=== PATIENT | female | born 2000 | race Caucasian/White ===

== ENCOUNTER 2023-02-27 22:31 | Emergency (ER) | payer BC, SELFPAY ==
[2023-02-27 22:41] VITALS: BP 110/68; PULSE 78; RESP 16; TEMP 36.2; O2SAT 100; BMI 23.0
--- NOTE | 2023-02-27 22:53 | ED_ITS ---
HPI - Allergic Reaction General Date Seen: 02/27/23 Chief complaint: Allergic Reaction Stated complaint: allergic reaction Time Seen by Provider: 02/27/23 22:50 Source: patient Mode of arrival: ambulatory Limitations: no limitations History of Present Illness HPI narrative: Patient is a very nice 23-year-old female who presents here with the sting to the left lower leg. This occurred approximately 10 hours ago, is been gradually increasing in size is very itchy and red. She took 1 dose of Benadryl before she came, she denies any breathing problems shortness of breath associated with this, no previous problems, on discussing with him it seems to be more of a Tabor/hornet sting. MD complaint: allergic reaction and hives Onset (ago): hour(s) Exposure: insect bite Symptoms: rash Severity: mild Treatment prior to arrival: benadryl Previous Allergic Reaction History: none Related Data Home Medications Medication Instructions Recorded Confirmed No Known Home Medications 02/27/23 02/27/23 Allergies Allergy/AdvReac Type Severity Reaction Status Date / Time bees Allergy Intermediate Uncoded 02/27/23 22:43 Review of Systems Status of ROS Reports: 10 or more systems reviewed and unremarkable except as noted in History and below Exam Narrative: Exam Narrative: She is seen in room 7 with her family, she is in no apparent distress, there is an area of approximately 12 x 12 cm in the left lower leg, that occurred corresponds to the area of that she was stung, is itchy, red, not warm, she moves her knee through full range of motion, and has normal distal pulses. Const: Vital Signs, click to edit/add: Vital Signs - 24 hr 02/27/23 22:41 Temperature 97.1 F L Pulse Rate [Right Pulse Oximeter] 78 Respiratory Rate 16 Blood Pressure [Ri ght Upper Arm] 110/68 Pulse Oximetry 100 Oxygen Delivery Me thod Room Air Course Course Hospital Course: I wonder of the side effects of both the Benadryl and the prednisone, she would like prescription. Vital Signs Vital signs: Initial Vital Signs Temperature 97.1 F L 02/27/23 22:41 Temperature Source Temporal Artery Scan 02/27/23 22:41 Pulse Rate 78 02/27/23 22:41 Pulse Rhythm Regular 02/27/23 22:41 Respiratory Rate 16 02/27/23 22:41 Blood Pressure 110/68 02/27/23 22:41 Blood Pressure Mean 82 02/27/23 22:41 Blood Pressure Position Sitting 02/27/23 22:41 Pulse Oximetry 100 02/27/23 22:41 Oxygen Delivery Method Room Air 02/27/23 22:41 Vital Signs Temperature 97.1 F L 02/27/23 22:41 Pulse Rate 78 02/27/23 22:41 Respiratory Rate 16 02/27/23 22:41 Blood Pressure 110/68 02/27/23 22:41 Pulse Oximetry 100 02/27/23 22:41 Oxygen Delivery Method Room Air 02/27/23 22:41 Temperature 97.1 F L 02/27/23 22:41 Pulse Rate 78 02/27/23 22:41 Respiratory Rate 16 02/27/23 22:41 Blood Pressure 110/68 02/27/23 22:41 Pulse Oximetry 100 02/27/23 22:41 Oxygen Delivery Method Room Air 02/27/23 22:41 MDM - Allergic Reaction MDM Narrative Medical decision making narrative: I think this is more of a localized allergic type reaction, some prednisone along with Benadryl, she can use the spray on Benadryl also been on sure it is going to make a huge Differential Diagnosis Differential diagnosis: Likely anaphylaxis, allergic reaction, angioedema, adverse reaction to drug and viral enanthem Medical Records Attestation: I reviewed the patient's medical records. Discharge Plan Discharge Clinical Impression: History of insect sting, Allergic reaction Patient Disposition: Home w/ Parent or Adult Condition: Stable Instructions: General Allergic Reaction (ED) Additional Instructions: Home rest use of Benadryl 50 mg every 6 hours, prednisone for the next 5 days, return if problems with swallowing, breathing, or other issues. I do not think this reaction is bad enough that she needs to carry an EpiPen. Prescriptions: No Action No Known Home Medications Stand Alone Forms: [employer] Info Instructions
== END 2023-02-27 23:06 | disposition home or self-care (01) ==
LOC: ED 23:02
PROVIDERS: Emergency Provider Family Medicine
DX: T63.441A Toxic effect of venom of bees, accidental (unintentional), initial encounter (principal)
CPT/HCPCS: 99283